=== PATIENT | female | born 1995 | race Caucasian/White ===

== ENCOUNTER 2018-10-07 16:22 | Day surgery (SDC) | payer BC ==
[2018-10-07 16:56] VITALS: BMI 32.5
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
--- NOTE | 2018-10-07 19:53 | ULT ---
SONOGRAPHIC BIOPHYSICAL PROFILE EXAM OBSTETRIC SONOGRAM LIMITED: History: Decreased movement. 3rd trimester gestation. FINDINGS: Single intrauterine gestation in cephalic presentation. Cervix partially obscured by the craniu m. Cervix is closed and estimated at 3.9 cm. Heart motion at 157 beats/minute. Advanced age craig its anatomic detail. Good tone, breathing movement, and gross movements were demonstrated. A 3.2 cm fluid pocket is documented at quadrant 3. Amniotic fluid index estimated at 3.9 cm. IMPRESSION: 1. Sonographic biophysical profile score is 8/8. 2. While a 3 cm pocket of amniotic fluid is demonstrated, the amniotic fluid is overall significantly decreased. Oligohydramnios. POS: BST
== END 2018-10-07 18:45 | disposition home health service (06) ==
LOC: L&D/OP 16:22
PROVIDERS: ATTEND Obstetrics & Gynecology
DX: O36.8130 Decreased fetal movements, third trimester, not applicable or unspecified (principal); O41.03X0 Oligohydramnios, third trimester, not applicable or unspecified; Z79.899 Other long term (current) drug therapy; Z3A.35 35 weeks gestation of pregnancy
CPT/HCPCS: 76815; 99281

== ENCOUNTER 2018-10-17 16:22 | Inpatient (IN) | payer BC ==
[2018-10-17] MEDS ORDERED: Butorphanol Tartrate 1 MG/ML VIAL SLOW IVP PRN (16:25)
[2018-10-17] MEDS ORDERED: Acetaminophen 500 MG TAB PO PRN (16:25)
[2018-10-17] MEDS ORDERED: HYDROcodone/Acetaminophen 5/325 mg Tablet PO PRN (16:25)
[2018-10-17] MEDS ORDERED: Ibuprofen 800 MG TAB PO PRN (16:25)
[2018-10-17] MEDS ORDERED: Diphenoxylate HCl/Atropine Tablet PO PRN (16:25)
[2018-10-17] MEDS ORDERED: Lidocaine 1% (PF) 30 ML VIAL SC PRN (16:25)
[2018-10-17] MEDS ORDERED: NS / Oxytocin 40 units/1000ml 1,000 ML IV PRN (16:25)
[2018-10-17] MEDS ORDERED: Carboprost 250 MCG/ML AMP IM PRN (16:25)
[2018-10-17] MEDS ORDERED: Ondansetron PF 4 MG/2 ML Vial IVP PRN (16:25)
[2018-10-17] MEDS ORDERED: Methylergonovine 0.2 MG/ML VIAL IM PRN (16:25)
[2018-10-17] MEDS ORDERED: Promethazine HCl 25 MG/ML VIAL IM PRN (16:25)
[2018-10-17] MEDS ORDERED: Misoprostol 200 MCG TAB PR PRN (16:25)
[2018-10-17] MEDS ORDERED: Penicillin G Potassium 5 MILL.UNITS in Sodium Chloride 0.9% 100 ML IVPB SCH (16:30)
[2018-10-17] MEDS ORDERED: Misoprostol 100 MCG TAB VAG SCH (16:30)
--- NOTE | 2018-10-17 16:41 | PDOC.LDHP ---
Labor and Delivery H&P Chief complaint: other (IOL) HPI: 22 yo @ 36w3d by LMP c/w 11 week CRL who presents for IOL. Pt sent from clinic for IOL due to oligohydramnios, KIMBERLY 3.09 (DVP 1.8 cm). 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 Pt denies any obvious LOF, ctx. Reports good FM. Current gestational age (weeks): 36 Due date: 11/11/18 Dating criteria: last menstrual period Grav: 2 Para: 0 OB History Details: 1 SAB Current complications: oligohydramnios, other (Late latent syphilis) Abnormal US findings: Yes (oligo; otherwise no other abnormal findings. ) Past Medical History: Syphilis Current medications: pre-dano vitamins Previous surgical history: other (Left hip arthroplasty) Allergies/Adverse Reactions: Allergies Allergy/AdvReac Type Severity Reaction Status Date / Time No Known Allergies Allergy Unverified 10/07/18 16:52 Social history: none - Physical Exam Vital signs reviewed and normal: yes General: NAD Lungs: nonlabored breathing Abdomen: gravid Extremeties: no edema FHT: category 1 (120s, mod pamela, +accels, no decels) [place] contractions every: rare ctx - Vaginal Exam cm dilated: 1 (cephalic; Cook balloon placed 80/80 cc. ) Effacement: 75% Station: -2 - OB Labs Blood type: A RH: positive Antibody Screen: negative HIV: negative RPR: positive HEPSAg: negative 1 hour GCT: negative GBS: unknown Urine drug screen: not done Rubella: immune Additional Labs: Quad screen wnl RPR titer 1:16 > 1:8 - Assessment 36w3 IUP Oligohydramnios Late latent syphilis, s/p tx. - Plan Plan: admit to L&D, cervical ripening (cook balloon placed), GBS antibiotic prophylaxis, informed consent obtained, anesthesia consult for pain management -: BMTZ for FLM Notify NICU of syphilis tx in .
[2018-10-17] MEDS: Lactated Ringer's 1,000 ML IV SCH ×2 (16:45→17:28)
[2018-10-17 17:27] LABS: Hemoglobin 12.6 g/dL (12.0-16.0); Mean Corpuscular HGB CONC 34.4 g/dL (32.0-36.0); Mean Corpuscular Hemoglobin 34.3 pg (27.0-31.0); Mean Corpuscular Volume 99.8 fL (78.0-98.0); Mean Platelet Volume 7.9 fL (7.4-10.4); Platelet Count 196 thou/uL (130-400); RBC Distribution Width 11.9 % (11.5-14.5); Red Blood Cell (RBC) Count 3.67 mill/uL (4.20-5.40); White Blood Cell (WBC) Count 9.7 thou/uL (4.8-10.8)
[2018-10-17] MEDS: Betamet Acet/Betamet Na Ph 30 MG/5 ML VIAL IM SCH (17:28)
[2018-10-17 17:39] VITALS: BMI 33.6
[2018-10-17 18:08] LABS: HBSAg Index 0.75 S/CO (0-0.99); HIV (1/2) Antibody/Antigen Non-Reactive (NonReactive); HIV 1/2 INDEX 0.13 S/CO (<1.00); Hep B Surf Ag Non-Reactive S/CO (NonReactive)
[2018-10-17 18:41] LABS: Syphilis Antibody Index 18.83 S/CO (<1.00 Non-Reactive)
[2018-10-17 19:43] LABS: Syphilis Antibody REACTIVE (Nonreactive)
[2018-10-17] MEDS: Penicillin G 2.5 MILL.units 2.5 MILL.UNITS in Premix Bag 1 BAG IVPB SCH (21:08)
[2018-10-18] MEDS ORDERED: Penicillin G Potassium 5 MILL.UNITS in Sodium Chloride 0.9% 100 ML IVPB SCH (03:00)
[2018-10-18] MEDS: Lactated Ringer's 1,000 ML IV SCH ×2 (03:00→09:28)
[2018-10-18] MEDS: NS w/ Oxytocin 10 units 500 ML IV SCH (05:25)
[2018-10-18] MEDS: Penicillin G 2.5 MILL.units 2.5 MILL.UNITS in Premix Bag 1 BAG IVPB SCH ×3 (06:57→17:20)
--- NOTE | 2018-10-18 08:09 | PDOC.LDPN ---
Labor & Delivery Progress Note - Subjective Subjective: other (feels some ctx) - Objective Vital signs reviewed and normal: yes General: NAD Uterine fundus: non tender Dilation: 5 Effacement: 75% Station: -1 FHT: category 1 (120s, mod pamela, +accels, no decels ) [place] contractions every: q2-3 min AROM: meconium stained fluid (thin) - Assessment (1) Late latent syphilis Code(s): A52.8 - LATE SYPHILIS, LATENT Current Visit: Yes Status: Acute (2) Oligohydramnios Code(s): O41.00X0 - OLIGOHYDRAMNIOS, UNSP TRIMESTER, NOT APPLICABLE OR UNSP Current Visit: Yes Status: Acute (3) Encounter for induction of labor Code(s): Z34.90 - ENCNTR FOR SUPRVSN OF NORMAL , UNSP, UNSP TRIMESTER Current Visit: Yes Status: Acute Plan: continue plan of care, pitocin for augmentation
[2018-10-18] MEDS ORDERED: Fentanyl 4 mcg/Bup 0.1% Cadd 100 ML ONE (08:27)
[2018-10-18] MEDS: Betamet Acet/Betamet Na Ph 30 MG/5 ML VIAL IM SCH (09:28)
--- NOTE | 2018-10-18 13:28 | PDOC.OPDEL ---
OB Operative/Delivery Note Delivery Dr/Surgeon: Johnna Nunes DO Pre-Delivery Diagnosis: medically indicated induction Procedure/Post Delivery Dx: spontaneous vaginal delivery Weeks gestation: 36 Anesthesia: epidural - Findings A Sex: female - 1 min: 8 - 5 min: 9 - Additional Findings/Plan Placenta delivered: spontaneous Repaired Obstetrical Laceration: 2nd degree Estimated blood loss: QBL 297 cc Compilations/Other Findings: in cephalic presentation, JOHNNIE position. Thin meconium stained amniotic fluid Nuchal cord x 2 Normal appearing placenta. Post delivery plan: routine recovery
[2018-10-18] MEDS ORDERED: Bisacodyl 10 MG SUPP PR PRN (16:42)
[2018-10-18] MEDS ORDERED: NS / Oxytocin 40 units/1000ml 1,000 ML IV SCH (16:42)
[2018-10-18] MEDS ORDERED: Benzocaine-Menthol 82.5 ML CAN TOP PRN (16:42)
[2018-10-18] MEDS ORDERED: diphenhydrAMINE 25 MG CAP PO PRN (16:42)
[2018-10-18] MEDS ORDERED: Milk Of Magnesia 30 ML UDCUP PO PRN (16:42)
[2018-10-18] MEDS ORDERED: HYDROcodone/Acetaminophen 5/325 mg Tablet PO PRN (16:42)
[2018-10-18] MEDS: Ibuprofen 800 MG TAB PO SCH (21:01)
[2018-10-18] MEDS: Docusate Calcium (SURFAK) 240 MG CAP PO SCH (21:01)
[2018-10-19] MEDS: NS w/ Oxytocin 10 units 500 ML IV SCH (05:24)
[2018-10-19] MEDS: Ibuprofen 800 MG TAB PO SCH ×3 (06:02→21:26)
[2018-10-19 06:05] LABS: Hemoglobin 10.2 g/dL (12.0-16.0); Mean Corpuscular HGB CONC 35.6 g/dL (32.0-36.0); Mean Corpuscular Hemoglobin 35.8 pg (27.0-31.0); Mean Platelet Volume 8.2 fL (7.4-10.4); Platelet Count 152 thou/uL (130-400); RBC Distribution Width 11.9 % (11.5-14.5); Red Blood Cell (RBC) Count 2.85 mill/uL (4.20-5.40); White Blood Cell (WBC) Count 15.1 thou/uL (4.8-10.8)
--- NOTE | 2018-10-19 07:48 | PDOC.PP ---
Post Progress Note Post Day #: 1 Subjective: Doing great, no complaints this morning. PO intake tolerated: yes Ambulation: yes Vital Signs (12 hours) Temp Pulse Resp BP Pulse Ox 10/19/18 04:35 98.0 F 71 20 106/62 96 10/19/18 00:45 97.9 F 84 18 130/71 Weight Weight 196 lb - Physical Examination General: NAD Respiratory: non-labored breathing Abdominal: lochia (normal), no distention, appropriately TTP Fundus firm & at: below umbilicus Neurological: no gross focal deficits Psychiatric: A&Ox3, normal affect Result Diagrams: 10/19/18 05:44 Additional Labs: Post Labs Blood Type A POSITIVE 10/17/18 18:45 Hep Bs Antigen Non-Reactive S/CO (NonReactive) 10/17/18 17:12 (1) Spontaneous vaginal delivery Code(s): O80 - ENCOUNTER FOR FULL-TERM UNCOMPLICATED DELIVERY Status: Acute - Assessment/Plan Continue routine PP care. D/c home tomorrow.
[2018-10-19] MEDS: Docusate Calcium (SURFAK) 240 MG CAP PO SCH ×2 (10:12→21:26)
[2018-10-20] MEDS: Ibuprofen 800 MG TAB PO SCH ×2 (06:29→14:04)
[2018-10-20] MEDS: NS w/ Oxytocin 10 units 500 ML IV SCH (06:31)
--- NOTE | 2018-10-20 06:39 | PDOC.PP ---
Post Progress Note Post Day #: PPD#2 Subjective: Doing well, no complaints. PO intake tolerated: yes Ambulation: yes Vital Signs (12 hours) Temp Pulse Resp BP Pulse Ox 10/19/18 20:15 98.1 F 74 18 119/64 99 Weight Weight 88.904 kg - Physical Examination General: NAD Respiratory: non-labored breathing Neurological: no gross focal deficits Psychiatric: normal affect Result Diagrams: 10/19/18 05:44 Additional Labs: Post Labs Blood Type A POSITIVE 10/17/18 18:45 Hep Bs Antigen Non-Reactive S/CO (NonReactive) 10/17/18 17:12 - Assessment/Plan DC home with precautions. RTC in [address] Amezcua.
[2018-10-20 08:10] VITALS: BP 119/72; TEMP 98.2
[2018-10-20] MEDS: Docusate Calcium (SURFAK) 240 MG CAP PO SCH (09:23)
[2018-10-20] MEDS ORDERED: Lidocaine 2% Jelly 5 ML TUBE ONE (10:00)
[2018-10-20] MEDS ORDERED: Milk Of Magnesia 30 ML UDCUP PO SCH (15:45)
== END 2018-10-20 16:55 | disposition home or self-care (01) | DRG 807 ==
LOC: L&D 16:22 → 3SW 10-18 16:13
PROVIDERS: ADMIT Obstetrics & Gynecology; ATTEND Obstetrics & Gynecology
PROC: 10E0XZZ Delivery of Products of Conception, External Approach (ICD-10-PCS; principal; 2018-10-18)
PROC: 0KQM0ZZ Repair Perineum Muscle, Open Approach (ICD-10-PCS; 2018-10-18)
PROC: 0U7C7ZZ Dilation of Cervix, Via Natural or Artificial Opening (ICD-10-PCS; 2018-10-18)
PROC: 3E033VJ Introduction of Other Hormone into Peripheral Vein, Percutaneous Approach (ICD-10-PCS; 2018-10-18)
DX: O41.03X0 Oligohydramnios, third trimester, not applicable or unspecified (principal); Z37.0 Single live birth; O70.1 Second degree perineal laceration during delivery; Z3A.36 36 weeks gestation of pregnancy
CPT/HCPCS: 36415; 51702; 85027; 86593; 86780; 86850; 86900; 86901; 87340; 87389; C1726; J0595; J0702; J2405; J2540; J2590; J3490